=== PATIENT | male | born 1960 | race Caucasian/White ===

== ENCOUNTER 2017-02-05 17:41 | Emergency (ER) | payer BC ==
[2017-02-05 19:15] VITALS: BP 134/91
[2017-02-05] MEDS ORDERED: Diphtheria,Pertussis(Acell),Tetanus Vaccine 0.5 ML SDV IM ONE (19:20)
--- NOTE | 2017-02-05 19:26 | EDM.PDOC ---
ED HPI Skin/Rash - General Chief Complaint: Skin Complaint Stated Complaint: FISHING HOOK IN HIS FINGER [id number] Time Seen by Provider: 02/05/17 19:16 Source: Reports: Patient History Limitations: Reports: No limitations - History of Present Illness INITIAL COMMENTS - FREE TEXT/NARRATIVE: This 56 yo male patient reports to the ED with a fishing hook in his left distal 2nd finger. The patient reports he caught a northern, removed his hook and noticed another hook in the fish. When he went to remove the other hook, the fish flopped and the patient got the hook in his finger. The patient has been attempting to remove the hook by himself, but has been unsuccessful. The patient reports his last tetanus shot was about 15 years ago. Symptom Onset Date: 02/05/17 Timing: Reports: still present Location, Skin: Reports: upper extremity, left Quality: Reports: Ache, Dull Severity: mild Known Identified Source: yes Place of Occurrence: other Sick Contact: no Associated Symptoms: Reports: no other symptoms Similar Symptoms Previously: no Recent Medical Care: no - Related Data Allergies Allergy/AdvReac Type Severity Reaction Status Date / Time No Known Allergies Allergy Verified 02/05/17 19:15 Home Meds: Ambulatory Orders Medication Instructions Recorded Confirmed . [No Known Home Meds] 02/05/17 02/05/17 Past Medical History - Past Health History Medical/Surgical History: Denies Medical/Surgical History Social & Family History - Family History Family Medical History: Noncontributory - Tobacco Use Smoking Status *Q: Never Smoker Second Hand Smoke Exposure: No - Caffeine Use Caffeine Use: Reports: None - Recreational Drug Use Recreational Drug Use: No ED ROS GENERAL - Review of Systems Review Of Systems: ROS reveals no pertinent complaints other than HPI. ED EXAM, SKIN/RASH Exam: See Below Exam Limited By: No limitations General Appearance: alert, WD/WN, mild distress Eye Exam: bilateral eye: EOMI, normal inspection, PERRL Ears: normal external exam Nose: normal inspection, no blood Throat/Mouth: Normal inspection, Normal lips Head: atraumatic, normocephalic Neck: normal inspection, full range of motion Respiratory/Chest: no respiratory distress Cardiovascular: normal peripheral pulses, regular rate, rhythm (Male) Exam: Deferred Rectal (Males) Exam: Deferred Extremities: normal range of motion, no pedal edema, normal capillary refill Neurological: alert, oriented, CN II-XII intact, normal cognition, normal gait, normal reflexes, no motor/sensory deficits Psychiatric: normal affect, normal mood Skin: Warm, Dry, Normal color, No rash Location, Skin: upper extremity, left Characteristics: other (fishing hook imbedded in left 2nd finger) Associated features: warmth, tenderness Lymphatic: no adenopathy ED SKIN PROCEDURES - Foreign Body Removal Indication:: The patient had a fishing hook imbedded in his left 2nd distal finger. Consent Obtained:: patient Performing Doctor:: Sal Posadas Foreign Body Other Location Comment:: Left distal 2nd finger Anesthesia Type: None Findings:: Fishing hook removed by advancing the hook to release the sue and removing the hook. Complications:: No Course - Vital Signs Last Recorded V/S: Last Vital Signs Temp 37.0 C 02/05/17 19:12 Pulse 74 02/05/17 19:12 Resp 16 02/05/17 19:12 BP 134/91 H 02/05/17 19:12 Pulse Ox 97 02/05/17 19:12 - Orders/Labs/Meds Orders: Active Orders 24 hr Category Date Time Status Vaccines to be Administered [RC] PER UNIT ROUTINE Care 02/05/17 19:21 Ordered Diphth,Pertuss(Acell),Tet Vac [Adacel] Med 02/05/17 19:20 Once 0.5 ml IM .ONCE ONE Departure - Departure Time of Disposition: 19:27 Disposition: Home, Self-Care 01 Condition: fair Clinical Impression: Fishing hook foreign body Qualifiers: Encounter type: initial encounter Qualified Code(s): W45.8XXA - Other foreign body or object entering through skin, initial encounter Instructions: VIS, Tetanus, Diphtheria, and Pertussis (Tdap) - CDC Forms: ED Department Discharge Care Plan Goals: The patient was advised of the examination results during the visit. The fishing hook was removed without incident. The patient was given an Adacel injection while in the ED. If the patient was advised of the examination results , he should return to the ED or follow-up with his primary care facility. - My Orders Last 24 Hours: My Active Orders 02/05/17 19:20 Diphth,Pertuss(Acell),Tet Vac [Adacel] 0.5 ml IM .ONCE ONE 02/05/17 19:21 Vaccines to be Administered [RC] PER UNIT ROUTINE - Assessment/Plan Last 24 Hours: My Active Orders 02/05/17 19:20 Diphth,Pertuss(Acell),Tet Vac [Adacel] 0.5 ml IM .ONCE ONE 02/05/17 19:21 Vaccines to be Administered [RC] PER UNIT ROUTINE
== END 2017-02-05 19:36 | disposition home or self-care (01) ==
LOC: DL.ED 17:41
DX: S60.451A Superficial foreign body of left index finger, initial encounter (principal); Z23 Encounter for immunization; W45.8XXA Other foreign body or object entering through skin, initial encounter
CPT/HCPCS: 90471; 90715; 99283